=== PATIENT | male | born 1960 | race Hispanic/Latino ===

== ENCOUNTER → 2019-06-04 | Outpatient (CLI) | payer MEDICARE | END | disposition home or self-care (01) | LOC: RAH 11:27 | PROVIDERS: ATTEND Internal Medicine Gastroenterology | DX: R11.2 Nausea with vomiting, unspecified (principal) | CPT/HCPCS: 76700 ==

== ENCOUNTER → 2020-12-03 | Outpatient (CLI) | payer MEDICARE | END | disposition home or self-care (01) | LOC: RAH 15:22 | PROVIDERS: ATTEND Internal Medicine | DX: R05 Cough (principal); M51.35 Other intervertebral disc degeneration, thoracolumbar region | CPT/HCPCS: 71046 ==

== ENCOUNTER → 2021-06-19 | Outpatient (CLI) | payer MEDICARE | END | disposition home or self-care (01) | LOC: RAH 17:12 | PROVIDERS: ATTEND Internal Medicine | DX: T17.800A Unspecified foreign body in other parts of respiratory tract causing asphyxiation, initial encounter (principal); X58.XXXA Exposure to other specified factors, initial encounter; Y93.89 Activity, other specified; Y92.89 Other specified places as the place of occurrence of the external cause; Y99.8 Other external cause status | CPT/HCPCS: 71046 ==